=== PATIENT | female | born 1940 | race African-American/Black ===

== ENCOUNTER 2021-03-31 11:17 | Emergency (ER) | payer MEDICARE ==
--- NOTE | 2021-03-31 12:19 | Event Note ---
ED Screening Note Date of service: 03/31/21 Time: 12:16 ED Screening Note: 80-year-old female patient with history of hypertension and diabetes presents to the emergency department for evaluation of asymptomatic hypertension. For the last 2 days, patient has noticed that her blood pressure has been elevated. Highest systolic blood pressure measured at home was over 200 mmHg. She has been compliant with her antihypertensive medication regimen. Last month, she was started on a diuretic by her primary care provider for lower extremity edema. This has improved significantly. Patient specifically denies chest pain, shortness of breath, palpitations, headache, syncope, weakness. General: Awake, appropriately interactive, no acute distress. Neck: Supple. Full range of motion intact. Cardiovascular: Normal peripheral perfusion. Pulmonary: No respiratory distress. Patient is speaking normally without use of accessory muscles. Skin: No apparent rashes or lesions. Neurological: No facial asymmetry. Speech is clear. Follows commands. Patient is alert and oriented. Musculoskeletal: Moves all four extremities spontaneously with normal range of motion. Psych: Cooperative. Appropriate mood and affect. Case discussed with Dr. Wilde, attending emergency physician, who recommends obtaining blood work due to patient's advanced age. I have greeted and performed a focused rapid initial assessment of this patient. A comprehensive ED assessment and evaluation of the patient, analysis of all test results, and completion of the medical decision-making process will be conducted by additional ED providers. This initial assessment/diagnostic orders/clinical plan/treatment(s) is/are subject to change based on patients health status, clinical progression and re-assessment. Further treatment and workup at subsequent clinical provider's discretion. Patient/guardian urged not to elope from the ED as their condition may be serious if not clinically assessed and managed.
--- NOTE | 2021-03-31 13:46 | Emergency Department Report ---
ED General Adult HPI - General Chief complaint: High BP Stated complaint: HBP Time Seen by Provider: 03/31/21 13:31 Source: patient Mode of arrival: Ambulatory Limitations: Language Barrier - History of Present Illness Initial comments: Patient is 80 years old pleasant female with history of hypertension. Patient presented to the ER stating that her blood pressure is high. Patient stated that she had a reading of 200 systolic blood pressure . Patient denied any headache, neck pain, chest pain, shortness of breath, weakness numbness or tingling sensation. Patient medication include hydralazine 25 mg 3 times daily and Lasix 20 mg. Severity scale (0 -10): 0 - Related Data Home Medications Medication Instructions Recorded Confirmed Last Taken Atenolol [Tenormin] 100 mg PO DAILY 03/31/21 03/31/21 Unknown Candesartan (Nf) [Atacand (Nf)] 32 mg PO DAILY 03/31/21 03/31/21 Unknown Clopidogrel [Plavix] 75 mg PO QDAY 03/31/21 03/31/21 Unknown Furosemide [Lasix] 20 mg PO QDAY 03/31/21 03/31/21 Unknown Risedronate Sodium 150 mg PO QMONTH 03/31/21 03/31/21 Unknown Rosuvastatin Calcium [Crestor] 10 mg PO DAILY 03/31/21 03/31/21 Unknown hydrALAZINE [Apresoline TAB] 25 mg PO TID 03/31/21 03/31/21 Unknown metFORMIN [Glucophage] 500 mg PO QDAY 03/31/21 03/31/21 Unknown Allergies Allergy/AdvReac Type Severity Reaction Status Date / Time No Known Allergies Allergy Unverified 03/31/21 11:27 ED Review of Systems ROS: Stated complaint: HBP Other details as noted in HPI Comment: All other systems reviewed and negative Constitutional: denies: chills, fever Respiratory: denies: cough, shortness of breath, SOB with exertion, SOB at rest Cardiovascular: denies: chest pain, palpitations Gastrointestinal: denies: abdominal pain, nausea, vomiting Musculoskeletal: denies: back pain Neurological: denies: headache, weakness, numbness, paresthesias, confusion, abnormal gait ED Past Medical Hx - Past Medical History Hx Hypertension: Yes Hx Diabetes: Yes Additional medical history: HIGH CHLOLESTROL - Surgical History Past Surgical History?: No - Social History Smoking Status: Unknown if ever smoked - Medications Home Medications: Home Medications Medication Instructions Recorded Confirmed Last Taken Type Atenolol [Tenormin] 100 mg PO DAILY 03/31/21 03/31/21 Unknown History Candesartan (Nf) [Atacand (Nf)] 32 mg PO DAILY 03/31/21 03/31/21 Unknown History Clopidogrel [Plavix] 75 mg PO QDAY 03/31/21 03/31/21 Unknown History Furosemide [Lasix] 20 mg PO QDAY 03/31/21 03/31/21 Unknown History Risedronate Sodium 150 mg PO QMONTH 03/31/21 03/31/21 Unknown History Rosuvastatin Calcium [Crestor] 10 mg PO DAILY 03/31/21 03/31/21 Unknown History hydrALAZINE [Apresoline TAB] 25 mg PO TID 03/31/21 03/31/21 Unknown History metFORMIN [Glucophage] 500 mg PO QDAY 03/31/21 03/31/21 Unknown History ED Physical Exam - General Limitations: Language Barrier General appearance: alert, in no apparent distress - Head Head exam: Present: atraumatic, normocephalic, normal inspection - Eye Eye exam: Present: normal appearance, PERRL - ENT ENT exam: Present: normal exam, normal orophraynx, mucous membranes moist - Neck Neck exam: Present: normal inspection, full ROM. Absent: tenderness, meningismus - Respiratory Respiratory exam: Present: normal lung sounds bilaterally - Cardiovascular Cardiovascular Exam: Present: regular rate, normal rhythm, normal heart sounds - GI/Abdominal GI/Abdominal exam: Present: soft, normal bowel sounds. Absent: distended, tenderness, guarding, rebound, rigid, organomegaly, mass, bruit, pulsatile mass, hernia - Extremities Exam Extremities exam: Present: normal inspection, full ROM, normal capillary refill. Absent: pedal edema, calf tenderness - Back Exam Back exam: Present: normal inspection, full ROM. Absent: CVA tenderness (R), CVA tenderness (L) - Neurological Exam Neurological exam: Present: alert, oriented X3, CN II-XII intact, normal gait, reflexes normal. Absent: motor sensory deficit - Psychiatric Psychiatric exam: Present: normal mood - Skin Skin exam: Present: warm, intact, normal color ED Course Vital Signs 03/31/21 03/31/21 11:30 15:02 Temperature 97.9 F Pulse Rate 70 64 Respiratory 20 16 Rate Blood Pressure 191/68 208/72 [Right] O2 Sat by Pulse 96 98 Oximetry ED Medical Decision Making - Lab Data Result diagrams: 03/31/21 12:58 03/31/21 12:58 - EKG Data -: EKG Interpreted by Me EKG shows normal: sinus rhythm Rate: normal - EKG Data Interpretation: no acute changes - Medical Decision Making Patient is 80 years old pleasant female with history of hypertension. Patient presented to the ER stating that her blood pressure is high. Patient stated that she had a reading of 200 systolic blood pressure . Patient denied any headache, neck pain, chest pain, shortness of breath, weakness numbness or tingling sensation. Patient medication include hydralazine 25 mg 3 times daily and Lasix 20 mg. Patient remained asymptomatic in the ER. Labs reviewed and is unremarkable occluding and normal kidney function. Advised patient to increase her hydralazine from 25 mg to 50 mg and to follow-up with her primary care physician in the next 2 to 3 days and to return to the ER if she develop any new symptoms. Critical care attestation.: If time is entered above; I have spent that time in minutes in the direct care of this critically ill patient, excluding procedure time. ED Disposition Clinical Impression: Malignant hypertension Disposition: DC-01 TO HOME OR SELFCARE Is pt being admited?: No Condition: Stable Instructions: Hypertension (ED), Managing Your Hypertension Referrals: [facility] [Other] - 3-5 Days
[2021-03-31 13:48] LABS: Basophils % (Auto) 0.5 % (0.0-1.8); Eosinophils # (Auto) 0.1 K/mm3 (0.0-0.4); Eosinophils % (Auto) 1.4 % (0.0-4.3); Hematocrit 44.1 % (30.3-42.9); Hemoglobin 15.4 gm/dl (10.1-14.3); Lymphocytes # (Auto) 1.2 K/mm3 (1.2-5.4); Lymphocytes % (Auto) 22.7 % (13.4-35.0); Mean Corpuscular HGB Conc 35 % (30-34); Mean Corpuscular Volume 91 fl (79-97); Monocytes # (Auto) 0.4 K/mm3 (0.0-0.8); Monocytes % (Auto) 7.2 % (0.0-7.3); Platelet Count 192 K/mm3 (140-440); Red Blood Count 4.85 M/mm3 (3.65-5.03); Red Cell Distribution Width 13.4 % (13.2-15.2)
[2021-03-31 14:13] LABS: Alanine Aminotransferase 35 units/L (7-56); Albumin 4.8 g/dL (3.9-5); Blood Urea Nitrogen 7 mg/dL (7-17); Calcium 10.5 mg/dL (8.4-10.2); Hemolysis Index 74
[2021-03-31 14:21] LABS: BUN/Creatinine Ratio 18
[2021-03-31] MEDS ORDERED: cloNIDine 0.1 MG TAB PO ONE (15:15)
[2021-03-31 16:32] VITALS: BP 187/67
== END 2021-03-31 16:20 | disposition home or self-care (01) ==
LOC: ED 11:17
DX: I10 Essential (primary) hypertension (principal); E11.9 Type 2 diabetes mellitus without complications; Z79.84 Long term (current) use of oral hypoglycemic drugs; Z79.899 Other long term (current) drug therapy
CPT/HCPCS: 36415; 80053; 82962; 83735; 83880; 85025